=== PATIENT | male | born 2005 | race Caucasian/White ===

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

== ENCOUNTER 2025-04-08 15:44 | Emergency (ER) | payer MEDICAID, SELFPAY ==
[2025-04-08 15:46] VITALS: BP 139/73; PULSE 77; RESP 17; TEMP 36.7; O2SAT 99; BMI 21.6
--- NOTE | 2025-04-08 17:29 | EDS_ITS ---
HPI HPI - GI History of Present Illness Chief Complaint: Nausea/Vomiting Informant: patient Abdominal Pain/Flank Pain Onset: Days (2) Context: Gradual Onset Timing: Continuous Quality: Aching and Sharp Location: Epigastric Worsened by: - (Breathing) Relieved by: Nothing Nausea/Vomiting/Emesis GI Symptom: Positive for Nausea and Vomiting Quality: Positive for Nonbilious; Negative for Blood streaks, Coffee ground or Hematemesis Diarrhea/Melena/Hematochezia GI Symptom: Negative for Diarrhea, Melena or Hematochezia Associated Symptoms Associated Symptoms: Negative for Dysuria, Frequency or Hematuria Narrative Narrative: Patient presents with epigastric abdominal pain that has been getting worse over the past 2 days. Patient states it is gradually gotten worse. Patient states it is constant. Patient describes it as aching and sharp. Patient states it is worse with deep breathing. Patient admits to some nausea and vomiting. Patient denies any hematemesis or coffee-ground emesis. Patient denies any diarrhea, melena, or hematochezia. Patient states he underwent EGD 2 days ago just prior to the pain starting. Patient states he was diagnosed with a hiatal hernia. Patient is on Prilosec at home. Patient has been taking this with no improvement. PFSH PFSH Medical History no medical history no medical history Home Medications Medication Instructions Recorded Last Taken Type fluoxetine 20 mg capsule 20 mg PO BID 10/29/19 Unknow n History hydroxyzine HCl 25 mg tablet 25 mg PO DAILY PRN anxiet y 04/08/25 Unknown History omeprazole 20 mg capsule,delayed 20 mg PO BID 04/08/25 Unknown History release ondansetron 4 mg disintegrating 4 mg PO Q8H PRN PRN Na usea #10 tabs 04/08/25 Unknown Rx tablet Allergy/AdvReac Type Severity Reaction Status Date / Time No Known Allergies Allergy Verified 10/29/19 20:59 Surgical History (Updated 04/08/25 @ 21:[address] Steve Hobbs DO) History of tonsillectomy and adenoidectomy Social History Smoking Status: Never smoker ROS ROS ED Constitutional Constitutional ED: Denies chills or fever(s) Eyes Eyes: Reports blurry vision ENT ENT ED: Reports sore throat; Denies rhinorrhea Cardiovascular Cardiovascular: Denies chest pain or palpitations Respiratory/Chest Respiratory/Chest: Reports cough and dyspnea Gastrointestinal Gastrointestinal: Reports abdominal pain, nausea and vomiting Genitourinary Genitourinary ED: Denies dysuria or hematuria Musculoskeletal Musculoskeletal: Reports neck pain; Denies back pain Integumentary Denies abscess or rash Neurologic Neurologic: Reports headache(s); Denies weakness Allergic/Immunologic Allergic/Immunologic ED: Denies mouth swelling or urticaria EXAM Physical Exam Const Vital Signs: 04/08/25 15:46 Temperature 98.1 F Temperature Source Oral Pulse Rate 77 Respiratory Rate 17 Blood Pressure 139/73 H Blood Pressure Mean 95 Pulse Ox 99 Oxygen Delivery Method Room Air Positive well nourished and well developed General Appearance ED: well developed and NAD HEENT Reports moist mucous membranes normocephalic and atraumatic Neck supple and no JVD Resp normal respiratory effort and clear to auscultation bilaterally Cardio regular rate and regular rhythm GI non-distended Palpation: soft and tender epigastric; Negative for guarding or rebound tenderness present Extremity full ROM Neuro CN's II-XII intact bilaterally, moves all extremities and no sensory deficits noted Sensorium / Orientation: alert Motor Exam: strength 5/5 throughout Psych mental status grossly normal MDM MDM MDM Narrative Medical decision making narrative: Differential diagnosis includes pancreatitis, gastritis, peptic ulcer disease, duodenal ulcer, bowel obstruction, perforation, dehydration, and electrolyte abnormality. CT scan of the abdomen and pelvis will be obtained to assess for bowel obstruction and perforation. CBC will be obtained to assess for leukocytosis and anemia. Comprehensive metabolic profile will be obtained to assess for hepatic function, renal function, and electrolyte abnormality. Lipase will be obtained to assess for pancreatitis. Urinalysis will be obtained to assess for urinary tract infection and hematuria. Lab Data Attestation: I reviewed the patient's lab results. Lab results narrative: CBC was reviewed and was within normal limits. Comprehensive metabolic profile was reviewed and was essentially within normal limits. Potassium was slightly low at 3.2. Lipase was reviewed and was normal at 34. Urinalysis was reviewed. There is no evidence of urinary tract infection or hematuria. Radiography Diagnostic Testing: CT scan of the abdomen and pelvis was obtained. There is no acute abnormality noted. There is no free air or free fluid. There is no evidence of bowel obstruction or perforation. This was interpreted by the radiologist and was also independently reviewed by myself. Treatment and Re-Evaluation :: Patient was given IV fluids, morphine, and Zofran. Patient was feeling better on reevaluation. Patient was advised of his findings. Patient was given a prescription for Zofran. Patient was instructed to start with a bland diet and advance as tolerated. Patient was instructed to follow-up with his primary care physician and surgeon in 5 to 7 days. Patient understood and was agreeable with plan. All questions were answered. Discharge Plan Triage Chief Complaint: Nausea/Vomiting ED Provider: Steve Hobbs Dx/Rx/DC Orders Clinical Impression: Epigastric abdominal pain, Nicotine vapor product user Instructions: ED Abdominal Pain Unkn Cause Male... Prescriptions: New ondansetron 4 mg tablet,disintegrating 4 mg PO Q8H PRN PRN (Reason: Nausea) Qty: 10 0RF No Action fluoxetine 20 MG capsule 20 mg PO BID omeprazole 20 mg capsule,delayed release(DR/EC) 20 mg PO BID hydroxyzine HCl 25 mg tablet 25 mg PO DAILY PRN (Reason: anxiety) Primary Care Provider: Care Physician,No Primary Referrals: Zulema Ring MD [Med Staff - Active Staff, General Surgery] - 3-5 Days Care Physician,No Primary [Primary Care Provider, Medical] Print Language: Upper Sorbian Disposition Disposition: Home, Self Care
--- NOTE | 2025-04-08 17:45 | CT_ITS ---
PROCEDURE: ABDOMEN/PELVIS W IV CONT ONLY 04/08/2025 REASON FOR EXAM: ABDOMINAL PAIN TECHNIQUE: Procedure Code: [id number] Modality: CT Procedure: ABDOMEN/PELVIS W IV CONT ONLY Coronal and Sagittal reconstruction series were provided. CONTRAST: Isovue-300 VOLUME: 75 mL One or more dose reduction techniques were used (e.g., Automated exposure control, adjustment of the mA and/or kV according to patient size, use of iterative reconstruction technique. RADIATION DOSE SUMMARY: CTDlvol: 6.65, 8.71 mGy DLP: 436.26 mGycm COMPARISON: None. FINDINGS: LUNG BASES: No basilar airspace consolidation or pleural effusion. LIVER: Hypodense 4.7 mm focus in the right lobe, too small to definitively characterize. GALLBLADDER: Unremarkable. No calcified stone. BILE DUCTS: No ductal dilation. PANCREAS: Unremarkable. SPLEEN: Unremarkable. ADRENAL GLANDS: Unremarkable. KIDNEYS: Unremarkable. The kidneys enhance symmetrically. No hydronephrosis or hydroureter. STOMACH AND BOWEL: No obstruction or perforation. No wall thickening. No CT evidence of colitis or acute diverticulitis. APPENDIX: Normal-appearing appendix. No CT evidence for appendicitis. RETRO/PERITONEUM: No free fluid. No free air. LYMPH NODES: Multiple small mesenteric lymph nodes with a mildly prominent ileocecal lymph node. PELVIC ORGANS: Unremarkable as visualized. VASCULATURE: No aortic aneurysm. ABDOMINAL WALL AND SOFT TISSUES: Unremarkable. BONES: No fracture or suspicious osseous abnormality. CT/Abdomen/Pelvis W IV Cont ONLY IMPRESSION: No acute abnormality in the abdomen or pelvis. Reading Location: [id number]
[2025-04-08 17:46] VITALS: BP 128/51; PULSE 70; RESP 16; O2SAT 100
[2025-04-08] MEDS: 0.9% Normal Saline (1000mL) 1,000 ML 999 ML IV (17:56)
[2025-04-08 17:59] LABS: Hematocrit 40.0 % (40-54); Hemoglobin 14.8 g/dL (13.0-16.5); Immature Granulocytes Count 0.010 X10^3/uL (0.0-0.0); Mean Corp Hgb Conc 37.0 g/dL (32-36); Mean Corpuscular Volume 83.7 fL (80-94); Mean Platelet Vol. 10.8 fl (6.2-12.0); NRBC Flagged by Analyzer 0 % (0-5); Platelet Count 276 K/mm3 (150-450); RBC Distribution Width CV 12.2 % (11.6-14.6); RBC Distribution Width SD 37.2 fl (35.1-43.9); Red Blood Count 4.78 M/mm3 (4.6-6.2); White Blood Count 7.1 K/mm3 (4.4-11.0)
[2025-04-08 18:04] LABS: Mucous, Urine 0 SEEN /hpf (<or=2+); Red Blood Cells-Urine 0 SEEN /hpf (0-5)
[2025-04-08 18:28] LABS: Color, Urine Straw (Yellow); Glucose, Dipstick Normal (Normal); Ketone-Dipstick Negative (Negative); Leukocyte Esterase-Dipstick Negative /ul (Negative); Nitrite-Dipstick Negative (Negative); Occult Blood-Urine Negative /ul (Negative); Protein-Dipstick Negative (Negative); Specific Gravity, Urine 1.010 (1.002-1.030); Urine Bilirubin Dipstick Negative (Negative)
[2025-04-08 18:29] LABS: AST(SGOT) 18 U/L (<=37); Alanine Aminotransfer ALT/SGPT 9 U/L (<=46); Albumin, Serum 4.7 g/dL (3.5-5.0); Alkaline Phosphatase 64 U/L (40-129); Anion Gap 12 (5-15); BUN 6 mg/dL (4-19); BUN/Creat Ratio 5.6 RATIO (10-20); Calcium,Total 9.2 mg/dL (7.6-11.0); Carbon Dioxide 25.8 mmol/L (21.0-32.0); Chloride 102 mmol/L (98-108); Estimated Creatinine Clearance 93.26 ml/min (50-250); Globulin 1.6 g/dL (2.2-4.2); Glucose 77 mg/dL (70-99); Lipase 34 U/L (13-75); Potassium 3.2 mmol/L (3.3-5.1)
--- OUTSIDE RECORDS SUMMARY | 2025-04-08 18:29 | XMS RPT_ITS | CCD ---
Author Organization [facility] Care Team Providers Care Jewelry Technician Name Role Phone SELF Referring Unavailable GIRISH HENDRICKS Attending Unavailable ZULEMA MARIN Attending Unavailable GIRISH HENDRICKS Referring Unavailable JUAN CARTER Attending Unavailabl e ZULEMA MARIN Referring Unavailable Problems Problem Classification Problem Date Documented Da te Episodic/Chronic Esophageal disorders (1 source) Gastro-esophageal reflux disease without esophagitis; Translations: [Gastroesophageal reflux disease, unspecified whether esophagitis present] Onset: 04-04-2025 Chronic Nausea and vomiting (1 source) Nausea with vomiting, unspecified; Translations: [Nausea and vomiting, unspecified vomiting type] Onset: 04-06-2025 Episodic Other gastrointestinal disorders (2 sources) Other dysphagia; Translations: [Esophageal dysphagia] Onset: 04-04-2025 Episodic Other upper respiratory disease (1 source) Pain in throat Onset: 04-02-2025 Episodic Results Test Name Value Interpretation Reference Range Facil ity ANES POSTPROC EVALon 025 ANES POSTPROC EVAL HNO ID: [id number] Author: JUAN CARTER MD Service: Anesthesiology Author Type: Anesthesiologist Type: Anesthesia Postprocedure Evaluation Filed: 04/06/2025 11:21 Note Text: POST ANESTHESIA EVALUATION NOTE : 2005 Procedure Summary Date: 04/06/25 Room / Location: [facility] Anesthesia Start: 1023 Anesthesia Stop: 1046 Procedure: EGD DIAGNOSTIC Diagnosis: Esophageal dysphagia (Established esophageal reflux) Scheduled Providers: Zulema Marin MD; Yani Castro APRN.STRATEGY SPECIALIST; Juan Carter MD Responsible Provider: Juan Carter MD Anesthesia Type: MAC ASA Status: 2 Anesthesia Type: MAC Last Vitals Vitals Value Taken Time BP 120/67 04/06/25 11:10 Temp 04/06/25 11:21 Pulse 79 04/06/25 11:13 Resp 16 04/06/25 11:04 SpO2 99 % 04/06/25 11:13 Vitals shown include unfiled device data. Post Anesthesia Patient Status Patient Evaluation: PACU. PACU/ICU Patient Condition: stable. Anticipated Disposition: phase 2 then home. Neurological Status: aware and responsive. Pulmonary Status: breathing comfortably on room air Airway Control: returned to baseline unsupported. Cardiovascular Status: stable. Pain Management: clinically adequate - multimodal analgesia pain management approach Postoperative Hydration: acceptable. Intraoperative Events: no significant anesthesia events Post Operative Nausea/Vomiting Status: no significant post operative nausea or vomiting Recommendation: continue current plan of care. Anesthesia Observations No Documentation SIGNATURE: Juan Carter MD PATIENT NAME: Ramon Faustin DATE: April 06, 2025 TIME: 11:21 AM CSN: [id number] [facility] ANES PRE-OPon 04-06-2025 ANES PRE-OP HNO ID: [id number] Author: JUAN CARTER MD Service: Anesthesiology Author Type: Anesthesiologist Type: Anesthesia Preprocedure Evaluation Filed: 04/06/2025 10:13 Note Text: ANESTHESIOLOGY DAY OF SURGERY NOTE : 2005 Procedure Information Date/Time: 04/06/25 1145 Scheduled providers: Zulema Marin MD; Yani Castro APRN.STRATEGY SPECIALIST; Juan Carter MD Procedure: EGD DIAGNOSTIC Location: [facility] Estimated body mass index is 22.6 kg/m? as calculated from the following: Height as of this encounter: 167.6 cm (5' 6"). Weight as of this encounter: 63.5 kg (140 lb). Most recent hematocrit and potassium results: No results found for this basename: HCT,HEMATOCRIT,K,POTAS SIUM Relevant Problems No relevant active problems I - PHYSICAL EVALUATION AIRWAY Patient intubated: No. Tracheostomy tube not present Mallampati: II. TM distance: >3 FB. Neck ROM: full ROM without neurological symptoms. Mouth openin FB. Short neck: no. Thick neck: no DENTAL Dental findings: teeth intact. Additional exam findings: yes. CARDIOVASCULAR Rhythm: regular Rate: normal PULMONARY Breath sounds clear to auscultation. II - ANESTHESIA PLAN ASA Score: 2 Anesthetic Plan: MAC The patient is a current smoker. NPO Status: adequate Monitoring Plan Monitoring plan: standard ASA. Post Procedure Analgesic Plan Postoperative analgesic plan: multimodal analgesia. Informed Consent Anesthetic risks, benefits, alternatives, personnel and consent discussed: yes. Patient / Responsible Libertarian agrees to proceed: yes Patient / Surrogate agrees to blood products: blood products not planned DNR status not reviewed with patient and/or family prior to surgery. Significant changes in the patient condition since the History and Physical, not otherwise documented in primary service progress note: no. Potential Anesthesia issues that may suggest increased risk of complications or contraindication to planned procedure: none. Vitals Value Taken Time BP 134/68 04/06/25 10:05 Pulse Resp 18 04/06/25 10:05 Temp 37 ?C (98.6 ?F) 04/06/25 10:05 SpO2 99 % 04/06/25 10:05 Outpatient Medications as of 04/06/2025 Medication Sig hydrOXYzine HCl (ATARAX) 25 mg tablet Take 25 mg by mouth three times a day as needed for anxiety. omeprazole (PRILOSEC) 20 mg capsule Take 1 capsule by mouth two times a day. FLUoxetine (PROZAC) 20 mg capsule Take 20 mg by mouth once daily. (Patient not taking: Reported on 04/02/2025) cholecalciferol (VITAMIN D-3) 2,000 unit tablet Take 1 tablet by mouth once daily. (Patient not taking: Reported on 04/02/2025) Facility-Administered Medications as of 04/06/2025 Medication Dose Route Frequency lidocaine (PF) 10 mg/mL (1 %) 1-2 mg injection (XYLOCAINE) 0.1-0.2 mL INTRADERMAL PRN lactated ringers iv infusion 30 mL/hr INTRAVENOUS CONTINUOUS I have interviewed and examined the patient. I have reviewed the medical record and/or the pre-anesthesia evaluation, pertinent labs, and test results. This contains updated information obtained within 48 hours of Surgery/Procedure. SIGNATURE: Juan Carter MD PATIENT NAME: Ramon Faustin DATE: April 06, 2025 TIME: 10:11 AM CSN: [id number] [facility] HISTORY PHYSICALon HISTORY PHYSICAL HNO ID: [id number] Author: ZULEMA MARIN MD Service: General Surgery Author Type: Physician Type: H&P Filed: 04/06/2025 10:12 Note Text: HISTORY AND PHYSICAL Ramon Faustin 2005 REFERRING PHYSICIAN: Girish Hendricks AP* CHIEF COMPLAINT: Consult HPI: The patient is a 20 year old male referred for endoscopy. Ramon notes severe acid reflux. He also notes water brash. He also notes dysphagia such that he has to drink extra fluids to have food go down. He also notes nausea and sometimes emesis. He states that he can't keep "food down" and that he "can't eat" He denies hematemesis. This has been occurring for the past 8-10 days. He also notes epigastric burning pain. He denies alcohol use, he admits to vaping and use of cannabis and THC. PAST MEDICAL HISTORY PAST MEDICAL HISTORY Diagnosis Date Acid reflux NEGATIVE MEDICAL HISTORY PAST SURGICAL HISTORY PAST SURGICAL HISTORY Procedure Laterality Date NONE CURRENT MEDICATIONS Current Outpatient Medications Medication Sig hydrOXYzine HCl (ATARAX) 25 mg tablet Take 25 mg by mouth three times a day as needed for anxiety. omeprazole (PRILOSEC) 20 mg capsule Take 40 mg by mouth once daily. famotidine (PEPCID) 20 mg tablet Take 20 mg by mouth two times a day. FLUoxetine (PROZAC) 20 mg capsule Take 20 mg by mouth once daily. (Patient not taking: Reported on 04/02/2025) cholecalciferol (VITAMIN D-3) 2,000 unit tablet Take 1 tablet by mouth once daily. (Patient not taking: Reported on
[2025-04-08 19:00] VITALS: BP 112/74; PULSE 56; RESP 17; O2SAT 100
[2025-04-08 19:41] LABS: Squamous Epithelial Cells - UA 0-5 SEEN /hpf (0-5)
[2025-04-08 20:40] VITALS: BP 103/61; PULSE 54; RESP 16; TEMP 36.8; O2SAT 99
[2025-04-08 21:00] VITALS: PULSE 74; RESP 16; O2SAT 97
== END 2025-04-08 21:20 | disposition home or self-care (01) ==
PROVIDERS: Emergency Provider Emergency Medicine; Visit Provider Emergency Medicine
DX: R10.13 Epigastric pain (principal); Z79.899 Other long term (current) drug therapy
CPT/HCPCS: 74177; 80053; 81001; 83690; 85025; 96361; 96374; 96376; 99283; Q9967; A4216; J2405